=== PATIENT | male | born 1980 ===

== ENCOUNTER 2018-04-01 07:00 | Inpatient (IN) | payer OTHER ==
[~2018-04-01] VITALS: Ht 177.8 cm; Wt 93.0 kg
[2018-04-08] MEDS ORDERED: MIRALAX17 GM PO (10:49)
[2018-04-08] MEDS ORDERED: ULTRACET PO (10:49)
[2018-04-08] MEDS ORDERED: NEXIUM 24HR20 MG PO (10:49)
== END 2018-04-09 15:00 | disposition home or self-care (01) | DRG 328 ==
LOC: O/R 04-08 06:00 → SURH 04-08 07:00 → MEDJ 04-08 17:36
PROVIDERS: Surgery
PROC: 0BUT4JZ Supplement Diaphragm with Synthetic Substitute, Percutaneous Endoscopic Approach (ICD-10-PCS; 2018-04-08)
PROC: 0WQF4ZZ Repair Abdominal Wall, Percutaneous Endoscopic Approach (ICD-10-PCS; 2018-04-08)
PROC: 0DJ08ZZ Inspection of Upper Intestinal Tract, Via Natural or Artificial Opening Endoscopic (ICD-10-PCS; 2018-04-08)
PROC: 0D844ZZ Division of Esophagogastric Junction, Percutaneous Endoscopic Approach (ICD-10-PCS; principal; 2018-04-08 07:00)
PROC: 0DV44ZZ Restriction of Esophagogastric Junction, Percutaneous Endoscopic Approach (ICD-10-PCS; 2018-04-08 07:00)
DX: K22.0 Achalasia of cardia (principal); R13.19 Other dysphagia; K44.9 Diaphragmatic hernia without obstruction or gangrene; K42.9 Umbilical hernia without obstruction or gangrene

== ENCOUNTER 2021-08-16 02:40 | Outpatient (CLI) | payer OTHER ==
[~2021-08-16 02:40] MED LIST: MIRALAX17 GM PO; NEXIUM 24HR20 MG PO; ULTRACET PO
== END 2021-08-16 10:47 | disposition home or self-care (01) ==
LOC: LAB 02:40
DX: Z20.818 Contact with and (suspected) exposure to other bacterial communicable diseases (principal); Z20.828 Contact with and (suspected) exposure to other viral communicable diseases

== ENCOUNTER 2022-06-15 12:26 | Outpatient (CLI) | payer OTHER | END 2022-06-15 13:00 | disposition home or self-care (01) | LOC: LAB 12:26 | PROVIDERS: ATTEND Pediatrics | DX: Z20.822 Contact with and (suspected) exposure to COVID-19 (principal); Z20.828 Contact with and (suspected) exposure to other viral communicable diseases ==